=== PATIENT | male | born 1965 | race Asian ===

== ENCOUNTER 2016-05-11 09:27 | Outpatient (CLI) | payer OTHER ==
[2016-05-11 09:52] LABS: PLATELET COUNT 338 K/uL (142-355)
[2016-05-11 10:21] LABS: POTASSIUM 4.2 mmol/L (3.6-5.2); SODIUM 135 mmol/L (136-145)
== END 2016-05-11 23:01 | disposition home or self-care (01) ==
LOC: US 09:27
PROVIDERS: Internal Medicine
DX: N50.9 Disorder of male genital organs, unspecified (principal); I10 Essential (primary) hypertension; Z12.5 Encounter for screening for malignant neoplasm of prostate
CPT/HCPCS: 36415; 80053; 80061; 81000; 84154; 84439; 84443; 85027

== ENCOUNTER 2017-03-17 10:15 | Outpatient (CLI) | payer OTHER | END 2017-03-17 19:21 | disposition home or self-care (01) | LOC: US 10:15 | DX: M79.89 Other specified soft tissue disorders (principal) ==

== ENCOUNTER 2017-10-06 15:00 | Outpatient (CLI) | payer OTHER | END 2017-10-06 23:34 | disposition home or self-care (01) | LOC: RAD 15:00 | DX: M79.89 Other specified soft tissue disorders (principal) ==

== ENCOUNTER 2017-10-14 08:33 | Outpatient (CLI) | payer OTHER | END 2017-10-14 22:47 | disposition home or self-care (01) | LOC: NM 08:33 | DX: M86.8X4 Other osteomyelitis, hand (principal) | CPT/HCPCS: A9561 ==

== ENCOUNTER 2018-02-07 09:52 | Outpatient (CLI) | payer OTHER | END 2018-02-07 22:52 | disposition home or self-care (01) | LOC: US 09:52 | DX: M79.89 Other specified soft tissue disorders (principal) ==

== ENCOUNTER 2018-02-08 11:52 | Outpatient (CLI) | payer OTHER | END 2018-02-08 22:07 | disposition home or self-care (01) | LOC: LAB 11:52 | DX: L03.90 Cellulitis, unspecified (principal) | CPT/HCPCS: 87070; 87077; 87185; 87186; 87205 ==

== ENCOUNTER 2018-04-29 13:41 | Outpatient (CLI) | payer OTHER | END 2018-04-29 22:59 | disposition home or self-care (01) | LOC: LAB 13:41 | DX: L97.519 Non-pressure chronic ulcer of other part of right foot with unspecified severity (principal) | CPT/HCPCS: 87070; 87077; 87185; 87205 ==

== ENCOUNTER 2019-01-16 11:16 | Outpatient (CLI) | payer OTHER | END 2019-01-16 19:58 | disposition home or self-care (01) | LOC: RAD 11:16 | DX: M79.674 Pain in right toe(s) (principal); R22.41 Localized swelling, mass and lump, right lower limb ==